=== PATIENT | male | born 1975 | race Caucasian/White ===

== ENCOUNTER 2019-02-27 11:30 | Emergency (ER) | payer OTHER ==
[~2019-02-27] VITALS: Ht 180.3 cm; Wt 90.7 kg
--- OUTSIDE RECORDS SUMMARY | ~2019-02-27 | XMS | Clinical Summary ---
Demographics + + + | Address | [address] | | | [place] [address] | + + + | Home Phone | | + + + | Preferred Language | Unknown | + + + | Marital Status | Single | + + + | Worship Affiliation | Unknown | + + + | Race | Unknown | + + + | Ethnic Group | Unknown | + + + Author + + + | Author | [facility] | | | and [place] | + + + | Organization | [facility] | | | and [place] | + + + | Address | Unknown | + + + | Phone | Unavailable | + + + Support + + +---------+ + | Name | Relationship | Address | Phone | + + +---------+ + | Jj Omer | ECON | Unknown | Unavailable | + + +---------+ + Care Team Providers + +------+ + | Care Medical Research Assistant Name | Role | Phone | + +------+ + | Gopal August MD | PCP | | + +------+ + Allergies Not on File Medications Not on file Active Problems Not on file Social History + +-------+ +--------+------+ | Tobacco Use | Types | Packs/Day | Years | Date | | | | | Used | | + +-------+ +--------+------+ | Never Smoker | | | | | + +-------+ +--------+------+ + + + | Sex Assigned at | Date Recorded | | | | + + + | Not on file | | + + + + + + + | Job Start Date | Occupation | Industry | + + + + | Not on file | Not on file | Not on file | + + + + + + + + | Travel History | Travel Start | Travel End | + + + + + + | No recent travel history available. | + + Last Filed Vital Signs + + + + + | Vital Sign | Reading | Time Taken | Comments | + + + + + | Blood Pressure | 127/79 | 10/09/2015 6:45 PM | | | | | PDT | | + + + + + | Pulse | 68 | 10/09/2015 6:45 PM | | | | | PDT | | + + + + + | Temperature | 36.5 C (97.7 F) | 10/09/2015 6:45 PM | | | | | PDT | | + + + + + | Respiratory Rate | 17 | 10/09/2015 6:45 PM | | | | | PDT | | + + + + + | Oxygen Saturation | - | - | | + + + + + | Inhaled Oxygen | - | - | | | Concentration | | | | + + + + + | Weight | 87 kg (191 lb 12.8 | 10/09/2015 6:45 PM | | | | oz) | PDT | | + + + + + | Height | - | - | | + + + + + | Body Mass Index | - | - | | + + + + + Plan of Treatment + + + + + | Health Maintenance | Due Date | Last Done | Comments | + + + + + | Vaccine: | | | | | Dtap/Tdap/Td (1 - | 9 | | | | Tdap) | | | | + + + + + | Vaccine: Influenza | | | | | (#1) | 9 | | | + + + + + Results Not on filefrom Last 3 Months"
--- OUTSIDE RECORDS SUMMARY | ~2019-02-27 | XMS | Encounter Summary ---
Demographics + + + | Address | [address] | | | [place] [address] | + + + | Home Phone | | + + + | Preferred Language | Unknown | + + + | Marital Status | Single | + + + | Jewish Affiliation | Unknown | + + + | Race | Unknown | + + + | Ethnic Group | Unknown | + + + Author + + + | Author | [facility] | | | and [place] | + + + | Organization | [facility] | | | and [...] Team Providers + +------+ + | Care Spool Sorter Name | Role | Phone | + +------+ + PCP | Unavailable | + +------+ + Encounter Details +--------+ + + + + | Date | Type | Department | Care Team | Description | +--------+ + + + + | 10/08/ | Emergency | [facility] | Christian Keane DO | Pustular psoriasis | | 2016 | | MEDICAL CENTER | [address] [place] | | | | | EMERGENCY CENTER | [address] [place], [place] | | | | | [address] | [address] | | | | | [place], [place] | [phone] | | | | | [address] | | | | | | [phone] | | | +--------+ + + + + Social History + +-------+ +--------+------+ | Tobacco [...] recent travel history available. | + + documented as of this encounter Last Filed Vital Signs + + + [...] | | + + + + + documented in this encounter Plan of Treatment Not on filedocumented as of this encounter Visit Diagnoses + + | Diagnosis | + + | Pustular psoriasis Other psoriasis | + + documented in this encounter"
--- OUTSIDE RECORDS SUMMARY | ~2019-02-27 | XMS | Clinical Summary ---
Demographics + + + | Address | [address] | | | [place] [address] | + + + | Home Phone | | + + + | Preferred Language | Unknown | + + + | Marital Status | Single | + + + | Episcopalian Affiliation | Unknown | + + + | Race | Unknown | + + + | Ethnic Group | Unknown | + + + Author + + + | Author | [facility] (Historical as of | | | 10-22-18) | + + + | Organization | [facility] (Historical as of | | | 10-22-18) | + + + | Address | Unknown | + + + | Phone | Unavailable | + + + Support + + + + + | Name | Relationship | Address | Phone | + + + + + | Jj Omer | ECON | [place] | | | | | [address] | | + + + + + Care Team Providers + +------+ + | Care Fabrication Operator Name | Role | Phone | + +------+ + | Gopal August MD | PP | | + +------+ + Allergies No Known Allergies Current Medications + + +-------+---------+------+------+-------+ | Prescription | Sig. | Disp. | Refills | Star | End | Statu | | | | | | t | Date | s | | | | | | Date | | | + + +-------+---------+------+------+-------+ | clindamycin | Take 300 mg by mouth | | | | | Activ | | (CLEOCIN) 300 MG | every 6 (six) | | | | | e | | capsule | hours. | | | | | | + + +-------+---------+------+------+-------+ | mupirocin | Apply topically 3 | | | | | Activ | | (BACTROBAN) 2 % | (three) times daily. | | | | | e | | ointment | | | | | | | + + +-------+---------+------+------+-------+ | atenolol | Take 25 mg by mouth | | | | | Activ | | (TENORMIN) 25 MG | daily. | | | | | e | | tablet | | | | | | | + + +-------+---------+------+------+-------+ Active Problems Not on file Social History + +-------+ +--------+------+ | Tobacco Use | Types | Packs/Day | Years | Date | | | | | Used | | + +-------+ +--------+------+ | Never Smoker | | | | | + +-------+ +--------+------+ + + +---------+ + | Alcohol Use | Drinks/We | oz/Week | Comments | | | ek | | | + + +---------+ + | No | | | | + + +---------+ + + + + | Sex Assigned at | Date Recorded | | | | + + + | Not on file | | + + + Last Filed Vital Signs + + + + | Vital Sign | Reading | Time Taken | + + + + | Blood Pressure | 127/79 | 10/09/2015 6:44 PM PDT | + + + + | Pulse | 68 | 10/09/2015 6:44 PM PDT | + + + + | Temperature | 36.5 C (97.7 F) | 10/09/2015 5:57 PM PDT | + + + + | Respiratory Rate | 17 | 10/09/2015 6:44 PM PDT | + + + + | Oxygen Saturation | 96% | 10/09/2015 6:44 PM PDT | + + + + | Inhaled Oxygen | - | - | | Concentration | | | + + + + | Weight | 87 kg (191 lb 12.8 | 10/09/2015 5:57 PM PDT | | | oz) | | + + + + | Height | - | - | + + + + | Body Mass Index | - | - | + + + + Plan of Treatment Not on file Results Not on filefrom Last 3 Months Insurance + +--------+ +------+-------+---------+ | Payer | Benefi | Subscriber | Type | Phone | Address | | | t Plan | ID | | | | | | / | | | | | | | Group | | | | | + +--------+ +------+-------+---------+ | [employer] | UNITED | [id number] | | | | | | | | | | | | | HEALTH | | | | | | | CARE - | | | | | | | [place] | | | | | + +--------+ +------+-------+---------+ + +--------+ +--------+ + + | Guarantor Name | Accoun | Relation to | Date | Phone | Billing Address | | | t Type | Patient | of | | | | | | | | | | + +--------+ +--------+ + + | DEN OMER | Person | Self [birth year] Home: | [address] | | | [place] | | 1976 | [phone] | [place] | | | [place] | | | [phone] | + +--------+ +--------+ + +"
--- OUTSIDE RECORDS SUMMARY | ~2019-02-27 | XMS | Clinical Summary ---
Demographics + + + | Address | [address] | | | [place] [address] | + + + | Home Phone | | + + + | Preferred Language | Unknown | + + + | Marital Status | Single | + + + | Presybeterian Affiliation | Unknown | + + + | Race | Unknown | + + + | Ethnic Group | Unknown | + + + Author + + + | Author | [facility] | | | and [place] | + + + | Organization | [facility] | | | [...] Team Providers + +------+ + | Care General Worker Name | Role | Phone | + [...]
--- OUTSIDE RECORDS SUMMARY | ~2019-02-27 | XMS | Encounter Summary ---
Demographics + + + | Address | [address] | | | [place] [address] | + + + | Home Phone | | + + + | Preferred Language | Unknown | + + + | Marital Status | Single | + + + | Confucianist Affiliation | Unknown | + + + | Race | Unknown | + + + | Ethnic Group | Unknown | + + + Author + + + | Author | [facility] | | | and [place] | + + + | Organization | [facility] | | | [...] Team Providers + +------+ + | Care Nurse Technician Name | Role | Phone | + +------+ + PCP | Unavailable | + +------+ + Encounter Details +--------+ + + + + | Date | Type | Department | Care Team | Description | +--------+ + + + + | 10/08/ | Emergency | [facility] | Christian Keane DO | Pustular psoriasis | | 2016 | | MEDICAL CENTER | [address] [place] | | | | | EMERGENCY CENTER | [address] [place], [place] | | | | | [address] | [address] | | | | | [place], [place] | [phone] | | | | | [address] | | | | | | [phone] | | | +--------+ + + + [...]
--- OUTSIDE RECORDS SUMMARY | ~2019-02-27 | XMS | Clinical Summary ---
Demographics + + + | Address | [address] | | | [place] [address] | + + + | Home Phone | | + + + | Preferred Language | Unknown | + + + | Marital Status | Single | + + + | Christianity Affiliation | Unknown | + + + | Race | Unknown | + + + | Ethnic Group | Unknown | + + + Author + + + | Author | [facility] (Historical as of | | | 10-22-18) | + + + | Organization | [facility] (Historical as of | | | 10-22-18) | + + + | Address | Unknown | + + + | Phone | Unavailable | + + + Support + + + + + | Name | Relationship | Address | Phone | + + + + + | Jj Omer | ECON | [place] | | | | | [address] | | + + + + + Care Team Providers + +------+ + | Care Overnight Houseperson Name | Role | Phone | + [...] +------+-------+---------+ | [employer] | [place] | [id number] | | | | | | | [...] | [place] | | | [phone] | [phone] | + +--------+ +--------+ + +"
[~2019-02-27 11:30] MED LIST: ASPIRIN EC81 MG PO; PROZAC20 MG PO
--- OUTSIDE RECORDS SUMMARY | 2019-02-27 11:34 | XMS ---
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 [place] VISIT COUNT (12 MO.) 1 HEAVEN [place] TOTAL 1 NOTE: Visits indicate total known visits. ED/UCC VISIT TRACKING (12 MO.) 02/27/2019 11:[address] [facility] [place] TYPE: Emergency COMPLAINT: - FINGER INJ, LACERATION INPATIENT VISIT TRACKING (12 MO.) No inpatient visits to display in this time frame [email or web address]
== END 2019-02-27 13:50 | disposition home or self-care (01) ==
LOC: ED 11:30
DX: S61.213A Laceration without foreign body of left middle finger without damage to nail, initial encounter (principal); W26.8XXA Contact with other sharp object(s), not elsewhere classified, initial encounter; Y99.0 Civilian activity done for income or pay; Z88.8 Allergy status to other drugs, medicaments and biological substances; Z79.899 Other long term (current) drug therapy
CPT/HCPCS: 90471; 90715; 99282-25

== ENCOUNTER 2021-11-24 11:52 | Day surgery (SDC) | payer BC ==
[~2021-11-24] VITALS: Ht 180.3 cm; Wt 85.0 kg
[2021-11-24] MEDS ORDERED: CYMBALTA20 MG PO (12:08)
--- NOTE | 2021-11-24 13:55 | NUR ---
11/24/21 1352 Alia Rodríguez 1354 PATIENT ARRIVES TO PACU AWAKE BUT DROWSY, SLEEPING WHEN NOT STIMULATED.RESP EVEN AND UNLABORED, NC AT 3 LITERS, TURNED OFF ON ARRIVAL TO PACU. DENIES PAIN OR NAUSEA WHEN AWAKE.
--- NOTE | 2021-11-26 09:48 | OR ---
[facility] [address] [place], [place] [address] Signed DATE OF OPERATION: 11/24/2021 SURGEON: Melissa Mao MD PREOPERATIVE DIAGNOSES: 1. Colon screening. 2. History of diverticulitis. POSTOPERATIVE DIAGNOSIS: Sigmoid and left-sided diverticulosis. No evidence of malignancy or colitis. PROCEDURE: Total colonoscopy to cecum with biopsy of rectum. ANESTHESIA: Intravenous sedation, fentanyl 100 mcg and Versed 9 mg. INDICATIONS: This 46-year-old white man is a patient of Dr. Melissa Contreras previously. He more than a year ago had an episode of significant diverticulitis, for which he was treated with antibiotics. CT scan confirmed diverticulitis from reports that I have. He notes certain foods to cause some symptoms of abdominal pain. He has had no blood per rectum. He did not require hospitalization for his diverticulitis history. He has no family history of colon cancer. He is admitted at this time to undergo colonoscopy. He understands the risks of bleeding, infection, and perforation. FINDINGS: The prep was good. Complete colonoscopy was undertaken of the cecum without question. Good visualization of the appendiceal orifice and ileocecal valve were noted. His findings included primarily significant diverticulosis of the sigmoid and left colon. There was no sign of polyps or colitis. A biopsy was obtained of the rectum as he has had episodic diarrhea, so as to assess for microscopic colitis. DESCRIPTION OF PROCEDURE: The patient was brought to the endoscopy suite and placed in lateral decubitus position, given intravenous sedation to the point of slurred speech and nystagmus. Digital rectal examination was normal. The Olympus video colonoscope was passed into the rectum and manipulated throughout the colon noting diverticulosis of the sigmoid and left colon. Ultimately, the scope was advanced to the cecum. The ileocecal valve and appendiceal orifice were fully visualized and normal. The scope was withdrawn from that point. Electronically Signed By: MELISSA MAO MD 11/26/21 0948 PATIENT NAME: ANNMARIE CHANCE OPERATIVE REPORT DATE OF : 79 REPORT #: [id number] PHYSICIAN: MELISSA MAO MD PCP: OTHER PCP REPORT IS CONFIDENTIAL AND NOT TO BE RELEASED WITHOUT AUTHORIZATION [facility] [address] [place], [place] [address] Signed Examination throughout showed no sign of polyps or obvious colitis, only diverticulosis of the left and sigmoid colon. Biopsies were obtained of the rectum to assess for microscopic colitis. Retroflexed view was otherwise normal. Scope was removed. The patient was taken to the recovery room in good condition. CONCLUDING DIAGNOSIS: Diverticulosis. PLAN: Recommend high-fiber diet. We would recommend repeat colonoscopy in 10 years, sooner if symptoms should occur. He will return to the ongoing care of primary care provider of his choosing at [facility]. MD DAYANARA Batista/SHERWIN /[id number] cc: [facility] Copies: ~ Electronically Signed By: MELISSA MAO MD 11/26/21 0948 PATIENT NAME: ROBSONANNMARIE OPERATIVE REPORT DATE OF : 79 REPORT #: [id number] PHYSICIAN: MELISSA MAO MD PCP: OTHER PCP REPORT IS CONFIDENTIAL AND NOT TO BE RELEASED WITHOUT AUTHORIZATION
--- NOTE | 2021-11-26 19:13 | PATH ---
[facility] [address] [place], [place] [address] Signed SPECIMEN(S): A RECTAL BIOPSY SPECIMEN SOURCE: A. RECTAL BIOPSY CLINICAL HISTORY: History of diverticulitis, diarrhea. Postop: Diverticulosis FINAL PATHOLOGIC DIAGNOSIS: Rectum, biopsy: - Portions of congested rectal mucosa. COMMENT: The biopsy shows portions of architecturally normal rectal mucosa. There is mild hemorrhage in the lamina propria. There is no evidence of acute or chronic inflammation. There is no evidence of dysplasia. TWK:kameron:C2NR MICROSCOPIC EXAMINATION: Histologic sections of all submitted blocks are examined by light microscopy. These findings, together with the gross examination, support the pathologic diagnosis. GROSS DESCRIPTION: The specimen, labeled "NS, #1 rectal biopsy," is received in formalin and consists of two calderon soft tissue fragments that measure 0.2 cm in greatest dimension. The specimen is entirely submitted in cassette (A1). CA (under the direct supervision of a pathologist) The Gross Description was prepared using a voice recognition system. The report was reviewed for accuracy; however, sound-alike word errors, addition and/or deletions may occur. If there is any question about this report, please contact Client Services. PERFORMING LABORATORY: The technical component was performed by [facility], [address] [place] [id number] (CLIA# [id number]). The professional interpretation was performed by [facility], [facility], [address] [place] [address] (CLIA#: [id number]). PATIENT NAME: ANNMARIE CHANCE PATHOLOGY DATE OF : 79 REPORT #: [id number] PHYSICIAN: JAIMIE PATHOLOGY PCP: OTHER PCP REPORT IS CONFIDENTIAL AND NOT TO BE RELEASED WITHOUT AUTHORIZATION [address] [place] [address] Signed Diagnostician: Chu Fair MD Pathologist Electronically Signed 11/26/2021 Copies: ~ PATIENT NAME: ANNMARIE CHANCE PATHOLOGY DATE OF : 79 REPORT #: [id number] PHYSICIAN: JAIMIE PATHOLOGY PCP: OTHER PCP REPORT IS CONFIDENTIAL AND NOT TO BE RELEASED WITHOUT AUTHORIZATION
== END 2021-11-24 14:30 | disposition home or self-care (01) ==
LOC: DS 11:52 → OPS 11:52 → DS 13:00 → OPS 13:00
PROVIDERS: ATTEND Surgery
PROC: 0DBP8ZX Excision of Rectum, Via Natural or Artificial Opening Endoscopic, Diagnostic (ICD-10-PCS; principal; 2021-11-24 13:00)
DX: R10.30 Lower abdominal pain, unspecified (principal); K57.30 Diverticulosis of large intestine without perforation or abscess without bleeding; F41.9 Anxiety disorder, unspecified; Z98.890 Other specified postprocedural states
CPT/HCPCS: 99153; G0500; J2250; J3010; J7121